=== PATIENT | male | born 1950 | race Caucasian/White ===

== ENCOUNTER 2019-01-18 10:50 | Observation (INO) | payer OTHER, MEDICARE ==
[2019-01-18] MEDS ORDERED: NS 1,000 ML IV ONE (10:53)
[2019-01-18] MEDS ORDERED: DIAZEPAM 5 MG TAB PO ONE (10:53)
[2019-01-18] MEDS ORDERED: ASPIRIN EC 325 MG TAB PO ONE (10:53)
[2019-01-18] MEDS ORDERED: FAMOTIDINE 20 MG TAB PO ONE (10:53)
[2019-01-18] MEDS ORDERED: diphenhydrAMINE 25 MG CAP PO ONE (10:53)
[2019-01-18] MEDS ORDERED: VERAPAMIL 5 MG/2 ML VIAL ONE ×2 (10:56→13:56)
[2019-01-18] MEDS ORDERED: IOPAMIDOL (ISOVUE-370) 150 ML BTL IV ONE ×2 (10:56→12:51)
[2019-01-18] MEDS ORDERED: LIDOCAINE 1% 300 MG/30 ML SDV ONE (10:56)
[2019-01-18] MEDS ORDERED: HEPARIN 10,000 UNIT/10 ML MDV (1,000 UNIT/ML) ONE (10:56)
[2019-01-18] MEDS ORDERED: fentaNYL 100 MCG/2 ML INJ ONE (10:56)
[2019-01-18] MEDS ORDERED: MIDAZOLAM 2 MG/2 ML VIAL ONE ×2 (10:56→12:38)
--- NOTE | 2019-01-18 11:10 | PDHPUP ---
History & Physical Update H&P update statement: This history and physical update is based on an assessment of the patient which was completed after admission or registration (within 24 hours), but prior to the surgery/procedure. H&P update: H&P reviewed & patient examined, no change in patient's condition since H&P completed
--- NOTE | 2019-01-18 11:11 | PDPROPOC ---
Sedation Plan of Care Sedation Plan of Care: vital signs stable, mental status noted, patient educated of risks, benefits, alternatives, patient can tolerate sedation ASA Classification: ASA 2 Planned drugs: fentanyl, midazolam Mallampati Score: Class 2 Mallampati Reference Image: Patient passed 3-3-2 rule?: Yes
[2019-01-18 11:15] LABS: PLATELET COUNT 271 10^3/uL (150-400)
[2019-01-18 11:23] LABS: INR 1.02 (0.83-1.16)
[2019-01-18] MEDS ORDERED: ATROPINE SULFATE 1 MG/10 ML SYR ONE (12:28)
[2019-01-18] MEDS ORDERED: EPINEPHrine 1 MG/10 ML SYR IVP ONE (12:28)
[2019-01-18] MEDS ORDERED: BIVALIRUDIN 250 MG/5 ML VIAL IV ONE ×2 (12:28→13:07)
[2019-01-18] MEDS ORDERED: NITROGLYCERIN 1,500 MCG/15 ML VIAL MISC ONE (12:28)
[2019-01-18] MEDS ORDERED: CLOPIDOGREL BISULFATE 75 MG TAB ONE (13:13)
[2019-01-18] MEDS ORDERED: ONDANSETRON DISINTEGRATING 4 MG TAB PO PRN (13:30)
[2019-01-18] MEDS ORDERED: ONDANSETRON 4 MG/2 ML VIAL IVP PRN (13:30)
[2019-01-18] MEDS ORDERED: ATROPINE SULFATE 1 MG/10 ML SYR IVP PRN (13:30)
[2019-01-18] MEDS ORDERED: NS 1,000 ML IV SCH (13:30)
[2019-01-18] MEDS ORDERED: CLOPIDOGREL BISULFATE 75 MG TAB PO ONE (13:30)
[2019-01-18] MEDS ORDERED: TEMAZEPAM 15 MG CAP PO PRN (13:30)
[2019-01-18] MEDS ORDERED: HYDROCODONE/APAP 5/325 TAB PO PRN (13:30)
[2019-01-18] MEDS ORDERED: ACETAMINOPHEN 325 MG TAB PO PRN (13:30)
[2019-01-18] MEDS ORDERED: NITROGLYCERIN 0.4 MG BTL SL PRN (13:30)
--- NOTE | 2019-01-18 13:39 | PDDXCAT ---
Diagnostic Cath Note - . Date: 01/18/19 Livestock Dealer: Joshua Indication: other (CAD, h/o CABG, recurrent angina, and ST segment elevation on ETT.) - Procedure Procedure: left heart catheterization, coronary angiography, left ventriculogram , vein graft injection, STAPLETON injection - Materials Left Heart Cath size: 6F Left Heart Cath materials: standard multipack (JL4, JR4, pigtail) - Findings-Left Heart Catheterization LM: 60% mid. LAD: Proximal 100% occlusion. LCX: Ostial 70% stenosis. RCA: Proximal 100% occlusion. rSV) SVG to PDA: Widely patent; target vessel with mild irregularities. 2) Free Radial Artery to Principal OM: 100% ostial. STAPLETON: STAPLETON to LAD: Widely patent; target vessel with mild irrregularities. LVEF: 60% Wall motion: Normal. Complications: None Estimated blood loss: <50ml Closure method: TR Band Assessment: 1) Coronary artery disease as described above. 2) Bypass graft anatomy as described above. 3) Normal left ventricular systolic function. 4) Successful PCI of the left main/proximal circumflex using a single drug-coated stent. Intervention: Based on patient's clinical history and diagnostic angiography on the decision was made to perform protected left main PCI extending into the proximal circumflex. The patient received intravenous Angiomax. A 6 [place] CLS 3.5 guide catheter was advanced to the left main. An Intuition guidewire was advanced into the distal portion of the principal obtuse marginal branch. Predilatation of the left main and proximal circumflex was performed using a 2.5 x 12 mm Emerge balloon. Attempts to pass a 2.5 x 28 mm Synergy stent into the left main and circumflex were unsuccessful due to encountering significant resistance. The stent delivery system was removed. Additional predilatation inflations were performed using a 2.5 x 15 mm NC Emerge balloon. Again, attempts to advance a 2.5 x 28 mm Synergy stent were met with significant resistance. A 2.5 x 15 mm Synergy stent was then advanced into position from the ostial left main into the proximal circumflex. The stent was deployed at high pressure. Post dilatation of the left main and circumflex ostium was performed using a 3.0 x 8 mm NC emerge balloon. Final angiograms demonstrated 0% residual stenosis and KAMRAN-III flow.
[2019-01-18] MEDS ORDERED: ATORVASTATIN CALCIUM 40 MG TAB PO SCH (21:00)
[2019-01-18] MEDS ORDERED: FINASTERIDE 5 MG TAB PO SCH (21:00)
[2019-01-18] MEDS ORDERED: DOXAZOSIN MESYLATE 4 MG TAB PO SCH (21:00)
[2019-01-18] MEDS ORDERED: LISINOPRIL 5 MG TAB PO SCH (21:00)
[2019-01-18] MEDS ORDERED: NEBIVOLOL HCL 5 MG TAB PO SCH (21:00)
[2019-01-19] MEDS ORDERED: ASPIRIN EC 325 MG TAB PO SCH (09:00)
[2019-01-19] MEDS ORDERED: CLOPIDOGREL BISULFATE 75 MG TAB PO SCH (09:00)
--- NOTE | 2019-01-19 09:01 | CPEKG ---
Test Reason : OPEN Blood Pressure : / mmHG Vent. Rate : 093 BPM Atrial Rate : 093 BPM P-R Int : 177 ms QRS Dur : 088 ms QT Int : 373 ms P-R-T Axes : 034 -53 076 degrees QTc Int : 464 ms Sinus rhythm Left anterior fascicular block T wave abnormalities, consider anterior ischemia. Confirmed by Jamie Veloz ([id number]) on 01/19/2019 9:00:56 AM Referred By: Fred Lewis Confirmed By:Jamie Veloz
--- NOTE | 2019-01-19 09:07 | CPEKG ---
Test Reason : OPEN Blood Pressure : / mmHG Vent. Rate : 072 BPM Atrial Rate : 073 BPM P-R Int : 197 ms QRS Dur : 094 ms QT Int : 426 ms P-R-T Axes : 040 -30 056 degrees QTc Int : 467 ms Sinus rhythm Inferior infarct, old Confirmed by Jamie Veloz ([id number]) on 01/19/2019 9:07:11 AM Referred By: Fred Lewis Confirmed By:Jamie Veloz
[2019-01-19 11:06] VITALS: BP 169/90
--- NOTE | 2019-01-19 12:48 | GDS ---
[f rep st] DISCHARGE SUMMARY REASON FOR ADMISSION: Coronary artery disease. HOSPITAL COURSE: Please refer to Dr. Quintana's office note of January 11, which serves as the admission history and physical for this hospital encounter. Briefly, the patient is a 68-year-old male with a history of coronary artery disease with a previous 3-vessel CABG performed in 2008, in [place], [place]. At his most recent office visit with Dr. Quintana, he described significant pain between the shoulder blades, occurring with activity in the cold . Based on that history, he was scheduled for an exercise stress test with nuclear imaging. On 11/2018, he underwent his exercise stress test. He had no significant symptoms, but demonstrated impr essive lateral ST-segment depression. Dr. Griffith was asked to review the patient's clinical status. He recommended sending the patient directly to the cardiovascular center for cardiac catheterization . That procedure was carried out and demonstrated normal left ventricular systolic function with an ejection fraction of 60%. There was no regional variation in contractility. His LAD and RCA were to tally occluded in their proximal segments. The left main had a 60% stenosis in its midportion. The ostium of the circumflex had at least 70% stenosis. His left internal mammary artery to left anterio r descending bypass graft was patent. A saphenous vein graft to the distal RCA was also patent. A f ree radial artery graft to the circumflex territory was occluded. Therefore, he underwent PCI of the left main/proximal circumflex with placement of a 2.5 x 15 mm Synergy drug-coated stent. The proxim al portion of the stent contained within the left main was post dilated with a 3.0 mm noncompliant ba lloon. Overnight, he has had no cardiac symptoms. He has not had any bleeding complications at his right femoral catheterization site. He is stable and ready for discharge. RECOMMENDATIONS AND DISPOSITION: He is discharged in stable condition. He was encouraged to follow a heart-healthy diet and continue with his usual exercise habits. Please refer to the medication sec tion of the electronic chart. His home medications are unchanged with the exception of the addition of clopidogrel for the next 12 months. A lipid panel checked during his hospital stay demonstrated a total cholesterol of 119 with HDL 36, LDL 60 and triglycerides 116. The office staff at [facility] has been instructed to contact the patient to arrange a followup appointment with Dr. White in the near future. DISCHARGE DIAGNOSES: 1. Coronary artery disease. 2. Status post percutaneous coronary intervention of the left main/proximal circumflex. /[id number]/MODL
== END 2019-01-19 12:45 | disposition home or self-care (01) ==
LOC: FCATH 10:50 → F2W 13:23
PROVIDERS: ADMIT Internal Medicine Interventional Cardiology; ATTEND Internal Medicine Interventional Cardiology
DX: I25.119 Atherosclerotic heart disease of native coronary artery with unspecified angina pectoris (principal); Z95.1 Presence of aortocoronary bypass graft; I10 Essential (primary) hypertension; E78.5 Hyperlipidemia, unspecified
CPT/HCPCS: 93005; 93458; C1725; C1760; C1769; C1874; C1887; C9600; J0583; J1644; J2250; J3010; Q9967; J0461

== ENCOUNTER → 2019-01-18 | Outpatient (CLI) | payer OTHER, MEDICARE | LOC: BHFA 09:00 | PROVIDERS: ATTEND Internal Medicine Cardiovascular Disease | DX: I10 Essential (primary) hypertension (principal) | CPT/HCPCS: 78452; 93017; A9500 ==